=== PATIENT | female | born 1970 | race Caucasian/White ===

== ENCOUNTER 2016-05-11 17:34 | Emergency (ER) | payer MEDICAID ==
[~2016-05-11] VITALS: Wt 79.5 kg
[~2016-05-11 17:34] MED LIST: ASPI81TA50; HYDR25TA6
[2016-05-11] MEDS ORDERED: ONDANSETRON 4 MG INJ IV STA (18:45)
[2016-05-11] MEDS ORDERED: ACETAMINOPHEN 500 MG TAB PO STA (18:45)
--- NOTE | 2016-05-11 18:54 | ERD ---
ER Documentation Chief Complaint Date/Time DATE: 05/11/16 TIME: 18:50 Chief Complaint FEVER DYSURIA FOR THE PAST FEW DAYS.GEN BODY PAIN. HPI The patient is a 46-year-old female past medical history of hypertension, pyelonephritis, and kidney stones here with 3 days of fever, chills, nausea, vomiting, cough of yellow sputum, sore throat, nasal congestion, headache, dysuria, and bilateral flank pain. ROS All systems reviewed and are negative except as per history of present illness. Medications Home Meds Active Scripts Ibuprofen* (Ibuprofen*) 600 Mg Tablet, 600 MG PO Q8 for 7 Days, TAB Prov:BILLY UNDERWOOD, MANAGER POLICY 05/11/16 Acetaminophen* (Tylenol*) 325 Mg Tablet, 2 TAB PO Q6 Y for PAIN AND OR ELEVATED TEMP, #30 TAB Prov:BILLY UNDERWOOD, MANAGER POLICY 05/11/16 Ciprofloxacin Hcl* (Ciprofloxacin Hcl*) 500 Mg Tablet, 500 MG PO BID for 10 Days , TAB Prov:BILLY UNDERWOOD, MANAGER POLICY 05/11/16 Reported Medications Hydrochlorothiazide (Hydrochlorothiazide) 25 Mg Tablet 08/05/10 Aspirin (Aspir-Low) 81 Mg Tablet. 08/05/10 Allergies Allergies: Coded Allergies: Amoxicillin (Verified Allergy, Mild, 02/28/13) PMhx/Soc History of Surgery: Yes (Kidney stone removal) Anesthesia Reaction: No Hx Neurological Disorder: No Hx Respiratory Disorders: No Hx Cardiac Disorders: Yes (HTN) Hx Psychiatric Problems: No Hx Miscellaneous Medical Probl: No Hx Alcohol Use: No Hx Substance Use: No Hx Tobacco Use: No Physical Exam Vitals Vital Signs Date Time Temp Pulse Resp B/P Pulse Ox O2 Delivery O2 Flow Rate FiO2 05/11/16 22:58 99.0 89 18 140/78 98 Room Air 05/11/16 21:08 100.5 96 18 150/73 96 Room Air 05/11/16 18:34 102.4 107 16 100 Room Air 05/11/16 17:38 103.2 124 22 159/88 100 Physical Exam INITIAL VITAL SIGNS: Reviewed by me GENERAL: Alert. Well developed and well nourished. Nontoxic appearing. No acute distress. HEAD: Head is normocephalic. Atraumatic. EYES: EOMI. PERRL. No scleral icterus. No conjunctival injection. No clear purulent drainage. ENT: External ears, nose, and mouth normal. Canals clear. Tympanic membranes pearly/thrasher, without erythema/bulging/effusion. Nasal passages patent with clear rhinorrhea. Oropharynx is clear. Tonsils +2 and without erythema or exudates. Uvula midline. Airway patent. Moist mucous membranes. NECK: Supple. Full range of motion. Trachea midline. No meningismus. No lymphadenopathy. RESPIRATORY: No tachypnea. Clear to auscultation bilaterally. No wheezing, rales , or rhonchi. CV: Regular rate and rhythm. No murmurs, rubs, or gallops ABDOMEN: Soft, non-distended, non-tender. No guarding. No rebound. Bowel sounds normal in all quadrants. BACK: + Bilateral CVA tenderness. Full ROM. EXTREMITIES: No obvious deformity. No clubbing or cyanosis. No edema. SKIN: Warm and dry. No diaphoresis. No obvious rashes or lesions. NEUROLOGIC: Alert and oriented x 3. Appropriate. Face is symmetric. Speech is normal. Moves all extremities equally. Result Diagram: 05/11/16185405/11/161854 Results 24 hrs Laboratory Tests Test 05/11/16 18:55 05/11/16 19:05 05/11/16 19:30 Alanine Aminotransferase (ALT/SGPT) 18IU/L Albumin 4.1g/dl Albumin/Globulin Ratio 1.00 Alkaline Phosphatase 103IU/L Anion Gap 18 Aspartate Amino Transf (AST/SGOT) 25IU/L Basophils # 0.310^3/ul Basophils % 2.1% Blood Urea Nitrogen 16mg/dl Calcium Level 9.2mg/dl Carbon Dioxide Level 24mmol/L Chloride Level 102mmol/L Creatinine 0.76mg/dl Direct Bilirubin 0.00mg/dl Eosinophils # 0.110^3/ul Eosinophils % 0.4% Globulin 4.10g/dl Glucose Level 108mg/dl Hematocrit 42.8% Hemoglobin 14.5g/dl Indirect Bilirubin 0.4mg/dl Lipase 99U/L Lymphocytes # 1.110^3/ul Lymphocytes % 8.2% Mean Corpuscular Hemoglobin 30.4pg Mean Corpuscular Hemoglobin Concent 34.0g/dl Mean Corpuscular Volume 89.4fl Mean Platelet Volume 8.2fl Monocytes # 0.510^3/ul Monocytes % 3.9% Neutrophils # 11.310^3/ul Neutrophils % 85.4% Nucleated Red Blood Cells # 0.010^3/ul Nucleated Red Blood Cells % 0.0/100WBC Platelet Count 01535^3/UL Potassium Level 3.8mmol/L Red Blood Count 4.7810^6/ul Red Cell Distribution Width 13.4% Sodium Level 140mmol/L Total Bilirubin 0.4mg/dl Total Protein 8.2g/dl White Blood Count 13.210^3/ul Urine Bacteria MODERATE Urine Bilirubin NEGATIVE Urine Clarity CLOUDY Urine Color YELLOW Urine Glucose NEGATIVE% Urine Hemoglobin 3+ Urine Ketones NEGATIVE Urine Leukocyte Esterase 1+ Urine Microscopic RBC 10-25/HPF Urine Microscopic WBC 10-25/HPF Urine Nitrite NEGATIVE Urine Specific [place] 1.015 Urine Squamous Epithelial Cells MODERATE Urine Total Protein TRACE Urine Urobilinogen 0.2 E.U./dL Urine pH 6.5 Serum HCG, Qualitative NEGATIVE Current Medications Medications (Trade) Dose Ordered Sig/David Route PRN Reason Start Time Stop Time Status Last Admin Dose Admin Acetaminophen 1000 mg 1,000 mg ONCE STAT PO 05/11/16 18:45 05/11/16 18:49 DC 05/11/16 19:12 Sodium Chloride (NS) 1,000 ml @ 1,000 mls/hr Q1H ONCE IV 05/11/16 19:00 05/11/16 19:59 DC 05/11/16 19:13 Ondansetron HCl (Zofran Inj) 4 mg ONCE STAT IV 05/11/16 18:45 05/11/16 18:50 DC 05/11/16 19:12 Ketorolac Tromethamine (Toradol) 30 mg ONCE STAT IV 05/11/16 18:56 05/11/16 18:57 DC 05/11/16 19:13 Ciprofloxacin (Cipro) 500 mg ONCE ONCE PO 05/11/16 22:00 05/11/16 22:01 DC 05/11/16 21:50 [place] [id number] Radiology Main Line: [phone] DIAGNOSTIC IMAGING REPORT Patient: CARMELO FUENTES : 1970 Age: 46 Sex: F MR #: [id number] DOS: 05/11/16 1845 Ordering MD: BILLY UNDERWOOD NP Location: [facility] Room/Bed: PROCEDURE: CT Abdomen and Pelvis without contrast. CLINICAL INDICATION: Bilateral flank pain TECHNIQUE: CT scan of the abdomen and pelvis without contrast was performed on a multidetector high-resolution CT scanner. The patient was scanned without intravenous contrast. Coronal and sagittal reformatted images were obtained from the axial source images. Images were reviewed on a high-resolution PACS workstation. One or more of the following dose reduction techniques were used: Automated exposure control, adjustment of the mA and/or kV according to patient size, use of iterative reconstruction technique. The total exam CTDI equals 16.43 mGy and the total exam DLP equals 969.53. mGy-cm. COMPARISON: CT from 02/28/2013. FINDINGS: There are bilateral nonobstructing renal calculi measuring up to 12 mm on the left side and 12 mm on the right. There is mild right renal pelvis fullness which is similar to the prior exam without vitaliy hydronephrosis. Perinephric fat stranding is noted around the inferior pole of the right kidney. The liver, gallbladder, pancreas, spleen and adrenal glands are all unremarkable allowing for lack of IV contrast. There is no free fluid, air or bowel obstruction. There is no bulky adenopathy. The appendix is normal. There is sigmoid diverticulosis without diverticulitis. The appendix is normal. The lung bases are clear. Small bilateral Bochdalek hernias are present. The abdominal aorta is of normal caliber. IMPRESSION: 1. Bilateral nonobstructive nephrolithiasis with calculi measuring up to 12 mm on each side. 2. Right-sided perinephric inflammatory changes and mild prominence of the right renal pelvis. The findings may represent recently passed calculus versus pyelonephritis. 3. Sigmoid diverticulosis without diverticulitis. RPTAT: RR .Matthew Cruz MD, Date Time Electronically viewed and signed by .Matthew Cruz MD, MD on 05/11/2016 20:36 .A/ CC: BILLY UNDERWOOD, MANAGER POLICY Procedures/MDM Nursing Notes Reviewed Previous Medical Records requested via [employer]. EMERGENCY DEPARTMENT COURSE / MEDICAL DECISION MAKING: The patient comes to the ED secondary to fever, chills, nausea, vomiting, body aches, headache, productive cough, sore throat, nasal congestion, dysuria, bilateral flank pain 3 days. Differential diagnosis upon initial evaluation includes but is not limited to: Sepsis, pyelonephritis, urinary tract infection, infected kidney stone, flu, viral syndrome, pneumonia, meningitis, peritonsillar abscess, Sabino angina, and others. The case was discussed with supervising physician Dr. aTpia. Plan of care: CT abdomen and pelvis without contrast, 1 L normal saline IV, Zofran 4 mg IV, Toradol 30 mg IV, Tylenol 1 g by mouth, CBC, CMP, lipase, urinalysis, urine culture, hCG qualitative, flu swab. The patient was treated with Toradol 30 mg IV, Zofran 4 mg IV, Tylenol 1 g by mouth with good relief. She was also given 1 L of normal saline IV. The patient' s fever and tachycardia resolved. The patient's pain resolved. Her repeat physical exam was benign. CBC: no e/o of systemic infection or severe anemia CMP: no e/o severe acidosis, alkalosis, renal failure, diabetic ketoacidosis, liver disease Lipase: no e/o pancreatitis : Negative Urine: + acute infection or hematuria Otherwise within normal limits, unremarkable, or as documented above. Flu swab: Negative CT scan per radiology report: IMPRESSION: 1. Bilateral nonobstructive nephrolithiasis with calculi measuring up to 12 mm on each side. 2. Right-sided perinephric inflammatory changes and mild prominence of the right renal pelvis. The findings may represent recently passed calculus versus pyelonephritis. 3. Sigmoid diverticulosis without diverticulitis. The patient's lab results, CT results, response to treatment, and repeat physical exam findings were discussed with Dr. Tapia. It was felt that the patient is an appropriate candidate for outpatient management and follow-up at this time. She will be treated for pyelonephritis with Cipro. She was given Cipro 500 mg by mouth prior to discharge, as it was likely that she cannot get her prescription filled tonight. Given patient's well appearance, lab findings, CT findings, response to treatment, and benign physical exam, I have low suspicion at this time for sepsis, obstructed kidney stone, infected stone, influenza, meningitis, peritonsillar abscess, Sabino angina, pneumonia, or any other serious cause of the patient's symptoms. Final impression: Pyelonephritis Viral syndrome Based on patient's history of present illness and physical examination the decision was made to discharge. The patient was re-evaluated after ED treatment and stabilizing measures, and symptoms have improved. There is no evidence of life threatening injuries or illnesses at this time. On re-examination, patient resting in no distress, stable vital signs, reports feeling better and safe for discharge with outpatient follow up with PMD in 1-2 days. Patient given return precautions. She verbalized understanding and agreed to return precautions. She'll return immediately for any new or worsening symptoms. Patient's blood pressure was elevated but appears stable without evidence of hypertensive emergency, end organ damage, chest pain or shortness of breath. The patient was counseled about the risks of untreated hypertension and urged to pursue outpatient monitoring and therapy in 2-3 days with their primary care physician. Prescription Cipro Ibuprofen Tylenol Departure Diagnosis: Primary Impression: Pyelonephritis Condition: Stable BILLY UNDERWOOD NP May 11, 2016 18:53
[2016-05-11] MEDS ORDERED: KETOROLAC 30 MG INJ IV STA (18:56)
[2016-05-11] MEDS ORDERED: SOD CHLORIDE 0.9% 1,000 ML IV ONE (19:00)
[2016-05-11 19:04] LABS: BASOPHIL # 0.3 10^3/ul (0.0-0.1); BASOPHILS % 2.1 % (0.0-2.0); EOSINOPHILS # 0.1 10^3/ul (0.0-0.5); EOSINOPHILS % 0.4 % (0.0-7.0); HEMATOCRIT 42.8 % (37.0-47.0); HEMOGLOBIN 14.5 g/dl (12.0-16.0); LYMPHOCYTES # 1.1 10^3/ul (0.8-2.9); LYMPHOCYTES % 8.2 % (15.0-51.0); MEAN CORPUSCULAR HEMOGLOBIN 30.4 pg (29.0-33.0); MEAN CORPUSCULAR VOLUME 89.4 fl (82.0-101.0); MEAN PLATELET VOLUME 8.2 fl (7.4-10.4); MONOCYTE # 0.5 10^3/ul (0.3-0.9); MONOCYTES % 3.9 % (0.0-11.0); NEUTROPHIL # 11.3 10^3/ul (1.6-7.5); NEUTROPHILS % 85.4 % (39.0-77.0); PLATELET COUNT 259 10^3/UL (140-440); RED BLOOD COUNT 4.78 10^6/ul (4.20-5.40); RED CELL DISTRIBUTION WIDTH 13.4 % (11.5-14.5); UNCORRECTED WBC 13.2 10^3/ul (4.8-10.8); WHITE BLOOD COUNT 13.2 10^3/ul (4.8-10.8)
[2016-05-11 19:08] LABS: CONDITION 1
[2016-05-11 19:19] LABS: ALBUMIN 4.1 g/dl (3.3-4.9); POTASSIUM 3.8 mmol/L (3.5-5.1)
[2016-05-11 19:21] LABS: CREATININE 0.76 mg/dl (0.44-1.00)
[2016-05-11 19:22] LABS: BILIRUBIN,INDIRECT 0.4 mg/dl (0-1.1); BILIRUBIN,TOTAL 0.4 mg/dl (0.2-1.3); CALCIUM 9.2 mg/dl (8.4-10.2); TOTAL PROTEIN 8.2 g/dl (6.1-8.1)
[2016-05-11 19:33] LABS: ADD UMIC YES; URINE BILIRUBIN (Dip) NEGATIVE (NEGATIVE); URINE BLOOD (Dip) 3+ (NEGATIVE); URINE GLUCOSE (Dip) NEGATIVE (NEGATIVE); URINE KETONES (Dip) NEGATIVE (NEGATIVE); URINE LEUKOCYTE ESTERASE (Dip) 1+ (NEGATIVE); URINE NITRITE (Dip) NEGATIVE (NEGATIVE); URINE TOTAL PROTEIN (Dip) TRACE (NEGATIVE); URINE UROBILINOGEN (Dip) 0.2 E.U./dL (0.1-1.0)
[2016-05-11 19:42] LABS: URINE COLOR YELLOW (YELLOW)
[2016-05-11 19:46] LABS: BACTERIA,URINE MODERATE; SQUAMOUS EPITHELIAL CELL,UR MODERATE
--- NOTE | 2016-05-11 20:37 | RADRPT ---
PROCEDURE: CT Abdomen and Pelvis without contrast. CLINICAL INDICATION: Bilateral flank pain TECHNIQUE: CT scan of the abdomen and pelvis without contrast was performed on a multidetector hig h-resolution CT scanner. The patient was scanned without intravenous contrast. Coronal and sagittal reformatted images were obtained from the axial source images. Images were reviewed on a high-resol [employer] PACS workstation. One or more of the following dose reduction techniques were used: Automated exposure control, adjustment of the mA and/or kV according to patient size, use of iterative recon struction technique. The total exam CTDI equals 16.43 mGy and the total exam DLP equals 969.53. mGy -cm. COMPARISON: CT from 02/28/2013. FINDINGS: There are bilateral nonobstructing renal calculi measuring up to 12 mm on the left side and 12 mm on the right. There is mild right renal pelvis fullness which is similar to the prior exam without fra nk hydronephrosis. Perinephric fat stranding is noted around the inferior pole of the right kidney. The liver, gallbladder, pancreas, spleen and adrenal glands are all unremarkable allowing for lack o f IV contrast. There is no free fluid, air or bowel obstruction. There is no bulky adenopathy. The appendix is norm al. There is sigmoid diverticulosis without diverticulitis. The appendix is normal. The lung bases are clear. Small bilateral Bochdalek hernias are present. The abdominal aorta is of normal caliber. IMPRESSION: 1. Bilateral nonobstructive nephrolithiasis with calculi measuring up to 12 mm on each side. 2. Right-sided perinephric inflammatory changes and mild prominence of the right renal pelvis. The findings may represent recently passed calculus versus pyelonephritis. 3. Sigmoid diverticulosis without diverticulitis. RPTAT: RR .Matthew Cruz MD, Date Time Electronically viewed and signed by .Matthew Cruz MD, on 05/11/2016 20:36 .A/
[2016-05-11] MEDS ORDERED: CIPR500T4 PO (21:42)
[2016-05-11] MEDS ORDERED: ACET325T33 PO (21:42)
[2016-05-11] MEDS ORDERED: IBUP-1542 PO (21:42)
[2016-05-11] MEDS ORDERED: CIPROFLOXACIN 500 MG TAB PO ONE (22:00)
[2016-05-11 22:58] VITALS: BP 140/78; PULSE 89; RESP 18; TEMP 99
== END 2016-05-11 22:59 | disposition home or self-care (01) ==
LOC: FTE 17:34
DX: N12 Tubulo-interstitial nephritis, not specified as acute or chronic (principal); I10 Essential (primary) hypertension; R11.2 Nausea with vomiting, unspecified; B34.9 Viral infection, unspecified; Z79.82 Long term (current) use of aspirin
CPT/HCPCS: 36415; 74176; 80053; 81001; 81003; 83690; 84703; 85025; 87086; 87400; 96374; 96375; J1885; J2405; J7030; Z7502; Z7610

== ENCOUNTER 2016-10-03 18:04 | Emergency (ER) | payer MEDICAID ==
[~2016-10-03] VITALS: Ht 157.5 cm; Wt 82.0 kg
[~2016-10-03 18:04] MED LIST changes: +ACET325T33 PO; +CIPR500T4 PO; +IBUP-1542 PO
[2016-10-03 18:07] VITALS: Ht 157.5 cm; Wt 82.0 kg
--- NOTE | 2016-10-03 18:37 | ERD ---
ER Documentation Chief Complaint Date/Time DATE: 10/03/16 TIME: 18:36 Chief Complaint fever , chills x 1 day HPI This 46-year-old female presents to emergency department with body aches, fever and chills 2 days. Patient reports hot urine, with dysuria and headache. Denies nausea vomiting or abdominal pain. Patient states she took Mucinex for symptoms with little relief of symptoms. ROS All systems reviewed and are negative except as per history of present illness. Medications Home Meds Active Scripts Ibuprofen* (Ibuprofen*) 600 Mg Tablet, 600 MG PO Q8 for 7 Days, TAB Prov:BILLY UNDERWOOD, SUPERVISOR LACE TEARING 05/11/16 Acetaminophen* (Tylenol*) 325 Mg Tablet, 2 TAB PO Q6 Y for PAIN AND OR ELEVATED TEMP, #30 TAB Prov:BILLY UNDERWOOD, SUPERVISOR LACE TEARING 05/11/16 Ciprofloxacin Hcl* (Ciprofloxacin Hcl*) 500 Mg Tablet, 500 MG PO BID for 10 Days , TAB Prov:BILLY UNDERWOOD, SUPERVISOR LACE TEARING 05/11/16 Reported Medications Hydrochlorothiazide (Hydrochlorothiazide) 25 Mg Tablet 08/05/10 Aspirin (Aspir-Low) 81 Mg Tablet. 08/05/10 Allergies Allergies: Coded Allergies: Amoxicillin (Verified Allergy, Mild, 02/28/13) PMhx/Soc History of Surgery: Yes (Kidney stone removal) Anesthesia Reaction: No Hx Neurological Disorder: No Hx Respiratory Disorders: No Hx Cardiac Disorders: Yes (HTN) Hx Psychiatric Problems: No Hx Miscellaneous Medical Probl: No Hx Alcohol Use: No Hx Substance Use: No Hx Tobacco Use: No Physical Exam Vitals Vital Signs Date Time Temp Pulse Resp B/P Pulse Ox O2 Delivery O2 Flow Rate FiO2 10/03/16 18:07 101.4 100 18 126/81 98 Physical Exam Const: Well-nourished, well-hydrated, in no acute Head: Atraumatic Eyes: Normal Conjunctiva, PERRLA, EOMI ENT: Tympanic membranes bilaterally dull there is no bulging or erythema, nasal mucosa is moist without terminated edema or septal bleeding points. Pharynx is pink and noninjected, tonsils without exudate, uvula midline without shift, Neck: Full range of motion..~ No meningismus. No cervical chain nodes Resp: Clear to auscultation bilaterally, no rales wheezes or rhonchi Cardio: Abd: Soft, non tender, non distended. No CVA tenderness Skin: Back: No midline or flank tenderness Ext: Neur: Awake and alert Psych: Normal Mood and Affect Results 24 hrs Laboratory Tests Test 10/03/16 19:26 Bedside Urine pH (LAB) 6.5 Bedside Urine Protein (LAB) Negative Bedside Urine Glucose (UA) Negative Bedside Urine Ketones (LAB) Negative Bedside Urine Blood 2+ Bedside Urine Nitrite (LAB) Positive Bedside Urine Leukocyte Esterase (L 1+ Current Medications Medications (Trade) Dose Ordered Sig/David Route PRN Reason Start Time Stop Time Status Last Admin Dose Admin Ibuprofen (Motrin) 400 mg ONCE ONCE PO 10/03/16 19:00 10/03/16 19:01 DC 10/03/16 19:36 Acetaminophen (Tylenol Tab) 650 mg ONCE ONCE PO 10/03/16 19:00 10/03/16 19:01 DC 10/03/16 19:36 Interpretation text Urinalysis positive for leukocytosis, nitrates, and microscopic hematuria, findings suggestive of a urinary tract infection. Procedures/MDM This 46-year-old female presents to emergency department today with fever, chills, body aches and sore throat. Patient reports symptoms 48 hours, has used Mucinex for symptomatic relief with little relief of symptoms. No suspicion for pneumonia, meningitis, pelvic inflammatory disease Urinary tract infection is likely, patient's urinalysis supports UTI diagnosis with positive leukocytosis, nitrates, and +2 microscopic hematuria, influenza swab pending at this time. Patient received Tylenol, and Motrin while in emergency department, plan to discharge home on Cipro 500 mg 1 tab p.o. twice daily 10 days continue to treat fever with Tylenol or Motrin teaching provided that Mucinex will not help her symptoms. Increase fluids, increase rest, return to emergency department if fever not responding to treatment, symptoms not improving after 48 hours. I feel the patient is stable for discharge at this time. I have discussed results, examination findings, the treatment plan with the patient and family present prior to discharge. Indications for emergent reevaluation, side effects of medication were also discussed. All questions were answered. Patient verbalizes understanding and agrees with plan of care. Departure Diagnosis: Primary Impression: UTI (urinary tract infection) Urinary tract infection type: acute cystitis Hematuria presence: with hematuria Qualified Code: N30.01 - Acute cystitis with hematuria Condition: Good Patient Instructions: Understanding Urinary Tract Infections (UTIs) Additional Instructions: Thank you for for coming to [facility] for your care today. Please ask your nurse or provider if you have questions about your care today and do not leave until all your questions have been answered. Please use any medications given as directed and follow-up with your doctor (or the doctor you were referred to) in the next 2-3 days. If you do not have a primary care doctor you may follow up at the [facility] (listed below). You may also use motrin and tylenol as needed for fever and/or pain unless instructed otherwise by your provider or nurse. Indications for more urgent follow-up have been discussed, but you may return to the Emergency Department at ANY time for any worrisome or worsening symptoms. If you have abdominal pain, please know that no test or exam you received is perfect and you should follow up within 8 hours for continued pain. If you had any imaging studies today, such as an X-Ray or CT Scan, these studies will be reviewed later by a radiologist. You will be called if there are important findings that were not identified today, so make sure the contact information you provided at registration is correct. If you received any narcotic pain control medicine today, such as Vicodin, Morphine or Dilaudid, your coordination and judgment may be affected for a number of hours. Please do not drive or operate heavy machinery, and you may want someone to assist you at home. If you were given a prescription for narcotic medication, be aware that it is very addictive- use sparingly and only if necessary. JENNIFER ALFONSO Oct 03, 2016 18:37
[2016-10-03] MEDS ORDERED: ACETAMINOPHEN 325 MG TAB PO ONE (19:00)
[2016-10-03] MEDS ORDERED: IBUPROFEN 200 MG TAB PO ONE (19:00)
[2016-10-03 19:21] LABS: URINE BLOOD (Dip) POC 2+ (NEGATIVE)
[2016-10-03] MEDS ORDERED: IBUP-1542 PO (19:59)
[2016-10-03] MEDS ORDERED: CIPR500T4 PO (19:59)
[2016-10-03] MEDS ORDERED: IBUP400T22 PO (20:01)
[2016-10-03 20:13] VITALS: BP 130/82; RESP 17; TEMP 99.8
== END 2016-10-03 20:13 | disposition home or self-care (01) ==
LOC: FTE 18:04
DX: N30.01 Acute cystitis with hematuria (principal); I10 Essential (primary) hypertension; Z79.82 Long term (current) use of aspirin
CPT/HCPCS: 81003; 87400; Z7610; 99283

== ENCOUNTER 2016-10-12 13:59 | Emergency (ER) | payer MEDICAID ==
[~2016-10-12] VITALS: Wt 75.0 kg
[~2016-10-12 13:59] MED LIST changes: +IBUP400T22 PO
[2016-10-12] MEDS ORDERED: KETOROLAC 60 MG INJ IM STA (15:10)
[2016-10-12 15:30] LABS: URINE BLOOD (Dip) POC 2+ (NEGATIVE)
--- NOTE | 2016-10-12 16:23 | RADRPT ---
PROCEDURE: XR Right Ankle. CLINICAL INDICATION: Trauma due to a fall. Right ankle pain. TECHNIQUE: 3 views. Frontal, lateral, and oblique. COMPARISON: None. FINDINGS: There is no fracture or dislocation. The soft tissues are normal. Articular surfaces are intact. There is a plantar calcaneal spur. There is no lytic or blastic lesion. There is no radiopaque foreign body. IMPRESSION: 1. Plantar calcaneal spur. 2. Otherwise normal images of the right ankle. RPTAT: QQ .Jono Pérez MD, MD Date Time Electronically viewed and signed by .Jono Pérez MD, on 10/12/2016 16:23 .R/
--- NOTE | 2016-10-12 16:24 | RADRPT ---
PROCEDURE: XR Right Wrist. CLINICAL INDICATION: Trauma due to a fall. Right wrist pain. TECHNIQUE: Four views. Frontal, lateral, oblique, and scaphoid view. COMPARISON: No prior studies are available for comparison. FINDINGS: There is no fracture or dislocation. The soft tissues are normal. Articular surfaces are intact. There is no lytic or blastic lesion. There is no radiopaque foreign body. IMPRESSION: 1. Normal images of the right wrist. RPTAT: QQ .Jono Pérez MD, Date Time Electronically viewed and signed by .Jono Pérez MD, on 10/12/2016 16:24 .R/
--- NOTE | 2016-10-12 16:25 | RADRPT ---
PROCEDURE: XR Lumbar Spine. CLINICAL INDICATION: Trauma due to a fall. Back pain. TECHNIQUE: Three views. AP, lateral and cone-down lateral view of the lumbar spine were obtained. COMPARISON: No prior studies are available for comparison. FINDINGS: There is normal stature and alignment of the vertebrae. There is no fracture. There is no lytic or blastic lesion. The disk height is normal. There is a 0.8 cm and a 0.6 cm calculus overlying the right kidney. There is a 1.0 cm calculus or u nderlying the lower left kidney. IMPRESSION: 1. Bilateral renal calculi. 2. Otherwise unremarkable images of the lumbar spine. RPTAT: QQ .Jono Pérez MD, MD Date Time Electronically viewed and signed by .Jono Pérez MD, on 10/12/2016 16:25 .R/
[2016-10-12] MEDS ORDERED: HYDR-906 PO (16:41)
[2016-10-12] MEDS ORDERED: IBUP-1542 PO (16:41)
--- NOTE | 2016-10-12 16:47 | ERD ---
ER Documentation Chief Complaint Date/Time DATE: 10/12/16 TIME: 16:44 Chief Complaint MECHANICAL FALL R SIDED PAIN HPI This 46-year-old female slipped on a wet floor at a store and landed on her right side. She complains of right wrist pain right ankle pain and low back pain on the right side. She denies any bowel or bladder incontinence, weakness , head injury, loss of consciousness, vomiting, bleeding, lacerations ROS All systems reviewed and are negative except as per history of present illness. Medications Home Meds Active Scripts Hydrocodone/Acetaminophen ([place] 5-325 Tablet) 1 Each Tablet, 1 EACH PO QID, # 14 TAB Prov:NAHED CLINE MD 10/12/16 Ibuprofen* (Motrin*) 600 Mg Tab, 600 MG PO Q6, #20 TAB Prov:NAHED CLINE MD 10/12/16 Ibuprofen* (Ibuprofen*) 400 Mg Tablet, 400 MG PO Q6H Y for PAIN, #30 TAB Prov:NATY,JENNIFER 10/03/16 Ciprofloxacin Hcl* (Ciprofloxacin Hcl*) 500 Mg Tablet, 500 MG PO BID for 10 Days , TAB Prov:NATY,JENNIFER 10/03/16 Ibuprofen* (Ibuprofen*) 600 Mg Tablet, 600 MG PO Q8 for 7 Days, TAB Prov:BILLY UNDERWOOD, ADAN 05/11/16 Acetaminophen* (Tylenol*) 325 Mg Tablet, 2 TAB PO Q6 Y for PAIN AND OR ELEVATED TEMP, #30 TAB Prov:BILLY UNDERWOOD, ADAN 05/11/16 Ciprofloxacin Hcl* (Ciprofloxacin Hcl*) 500 Mg Tablet, 500 MG PO BID for 10 Days , TAB Prov:BILLY UNDERWOOD, ADAN 05/11/16 Reported Medications Hydrochlorothiazide (Hydrochlorothiazide) 25 Mg Tablet 08/05/10 Aspirin (Aspir-Low) 81 Mg Tablet. 08/05/10 Allergies Allergies: Coded Allergies: amoxicillin (Verified Allergy, Mild, 10/12/16) PMhx/Soc History of Surgery: Yes (Kidney stone removal) Anesthesia Reaction: No Hx Neurological Disorder: No Hx Respiratory Disorders: No Hx Cardiac Disorders: Yes (HTN) Hx Psychiatric Problems: No Hx Miscellaneous Medical Probl: No Hx Alcohol Use: No Hx Substance Use: No Hx Tobacco Use: No Smoking Status: Never smoker Physical Exam Vitals Vital Signs Date Time Temp Pulse Resp B/P Pulse Ox O2 Delivery O2 Flow Rate FiO2 10/12/16 14:03 98.0 78 18 143/85 99 Physical Exam Const: [], [id number]. Head: Atraumatic Eyes: Normal Conjunctiva ENT: Normal External Ears, Nose and Mouth. Neck: Full range of motion..~ No meningismus. Nontender Resp: Clear to auscultation bilaterally Cardio: Regular rate and rhythm, no murmurs Abd: Soft, non tender, non distended. Normal bowel sounds Skin: No petechiae or rashes Back: No midline or flank tenderness. Mild tenderness in the right L4-5 area. No midline tenderness or deformities. Ext: No cyanosis, or edema. Mild tenderness in the right wrist joint right ankle joint without swelling or deformities. Neur: Awake and alert Psych: Normal Mood and Affect Results 24 hrs Laboratory Tests Test 10/12/16 15:34 Bedside Urine pH (LAB) 6.0 Bedside Urine Protein (LAB) 1+ Bedside Urine Glucose (UA) Negative Bedside Urine Ketones (LAB) Trace Bedside Urine Blood 2+ Bedside Urine Nitrite (LAB) Negative Bedside Urine Leukocyte Esterase (L Trace Current Medications Medications (Trade) Dose Ordered Sig/David Route PRN Reason Start Time Stop Time Status Last Admin Dose Admin Ketorolac Tromethamine (Toradol) 60 mg ONCE STAT IM 10/12/16 15:10 10/12/16 15:13 DC 10/12/16 15:36 Procedures/MDM X-ray right wrist 3V Interpreted by me: Scaphoid: [Normal] Bones: [No fracture] Joints: [No dislocation] Foreign body: [None]. Impression-normal left wrist x-ray X-ray right ankle 3V Interpreted by me: Bones: [No fracture] Joints: No dislocation. Impression-normal right ankle x-ray X-ray LS-Spine 3V Interpreted by me: Bones: No fracture, or lytic lesions Joints: No dislocation Foreign body: None. Impression-normal lumbar spine x-ray Patient is given [place] and ibuprofen. Patient presents after mechanical fall today with signs and symptoms of a right wrist sprain and right ankle sprain and lumbar strain without evidence of fracture, dislocation, neurologic deficit , head injury, neck injury. She will treated with [place] and ibuprofen at home and further observation. Patient placed in a right wrist brace. Splint Assessment: Neurovascularly intact post splint placement with good fit. Patient was also placed in right ankle Vamshi bandage. Patient was neurovascular intact after the Vamshi bandage. Patient was also given crutches Patient will be discharged home instructions to follow-up with primary doctor for further evaluation treatment, otherwise return to the ER for new or worsening symptoms. Departure Diagnosis: Primary Impression: Lumbar strain Encounter type: initial encounter Qualified Code: S39.012A - Lumbar strain, initial encounter Additional Impressions: Right wrist sprain Encounter type: initial encounter Qualified Code: S63.501A - Right wrist sprain, initial encounter Ankle sprain Encounter type: initial encounter Involved ligament of ankle: unspecified ligament Laterality: right Qualified Code: S93.401A - Sprain of right ankle , unspecified ligament, initial encounter Fall Encounter type: initial encounter Qualified Code: W19.XXXA - Fall, initial encounter Condition: Stable Patient Instructions: Treating Ankle Sprains, Fall, Mechanical, Wrist Sprain Additional Instructions: Examines normal hoy. Cheque otro vez con malin doctor primario en el proximo quinonez or regresa para mas o nueva simptomas. NAHED CLINE MD Oct 12, 2016 16:47
== END 2016-10-12 16:50 | disposition home or self-care (01) ==
LOC: FTE 13:59
DX: S39.012A Strain of muscle, fascia and tendon of lower back, initial encounter (principal); S63.501A Unspecified sprain of right wrist, initial encounter; S93.401A Sprain of unspecified ligament of right ankle, initial encounter; I10 Essential (primary) hypertension; W01.0XXA Fall on same level from slipping, tripping and stumbling without subsequent striking against object, initial encounter; Y92.512 Supermarket, store or market as the place of occurrence of the external cause; Z79.82 Long term (current) use of aspirin
CPT/HCPCS: 29125; 72100; 73110; 73610; 81003; 96372; J1885; Z7502

== ENCOUNTER 2017-08-25 22:12 | Emergency (ER) | END 2017-08-25 23:00 | disposition home or self-care (01) ==

== ENCOUNTER 2017-08-26 13:22 | Emergency (ER) | END 2017-08-26 15:05 | disposition home or self-care (01) ==

== ENCOUNTER 2018-01-11 21:54 | Emergency (ER) | END 2018-01-12 01:47 | disposition home or self-care (01) ==